=== PATIENT | male | born 1965 | race Caucasian/White ===

== ENCOUNTER 2019-11-29 08:08 | Emergency (ER) | payer MEDICAID ==
[~2019-11-29] VITALS: Ht 152.4 cm; Wt 63.5 kg
[2019-11-29 08:08] VITALS: BP 119/93
--- NOTE | 2019-11-29 08:09 | NUR ---
BIBA TAKEN TO BED 11
--- NOTE | 2019-11-29 08:15 | NUR ---
54 Y/O MALE BIBA A/O x3 C/O ABD PAIN THAT FEELS LIKE BURNING WITH PAIN 03/21. PT STATES HE HAS HAD THIS PAIN FOR 3 YEARS AND DEALS WITH IT DAILY AND NOTHING CHANGED IN HIS ROUTINE. PT STATES HE ALSO FELL THIS MORNING AND DENIES LOC/HITTING HEAD/N/V. PT STATES HIS HEAD/RIGHT ELBOW/LEFT SHOULDER ACHES. DENIES DIARRHEA; SKIN IS PINK/WARM/DRY; HR EVEN AND REGULAR; PT DENIES ANY FEVER, CP, SOB, OR COUGH AT THIS TIME;VSS; PATIENT POSITIONED FOR COMFORT; HOB ELEVATED; BEDRAILS UP X2; BED DOWN AND WHEELS LOCKED. MEDICAL HX: PT DENIES NKA
--- NOTE | 2019-11-29 08:17 | NUR ---
AT BEDSIDE EXAMINING PT
--- NOTE | 2019-11-29 08:34 | NUR ---
AT BEDSIDE RE-EVALUATING PT
--- NOTE | 2019-11-29 08:46 | NUR ---
X-RAY AT BEDSIDE
[2019-11-29] MEDS ORDERED: NACL 0.9% 500 ML IV ONE (08:50)
[2019-11-29] MEDS ORDERED: KETOROLAC 30 MG/ML VIAL IVP ONE (08:50)
--- NOTE | 2019-11-29 09:00 | NUR ---
EMT AT BEDSIDE FOR EKG
--- NOTE | 2019-11-29 09:15 | NUR ---
LAB AT BEDSIDE
[2019-11-29 09:17] LABS: BASOPHILS % (AUTO) 0.3 % (0.0-2.0); EOSINOPHILS % (AUTO) 0.8 % (0.0-4.0); HEMATOCRIT 44.6 % (36-52); HEMOGLOBIN 15.2 g/dL (12.0-18.0); LYMPHOCYTES % (AUTO) 16.1 % (20.5-51.1); MEAN CORPUSCULAR HEMOGLOBIN 30 pg (27-31); MEAN CORPUSCULAR HGB CONC 34 g/dL (33-37); MEAN CORPUSCULAR VOLUME 87.5 fL (80-94); MONOCYTES # (AUTO) 0.3 K/uL (0.8-1.0); MONOCYTES % (AUTO) 4.9 % (1.7-9.3); NEUTROPHILS # (AUTO) 4.7 K/uL (1.8-7.7); NEUTROPHILS % (AUTO) 77.9 % (42.2-75.2); PLATELET COUNT (AUTO) 251 K/uL (140-450); RED CELL DISTRIBUTION WIDTH 13.1 % (11.6-13.7); WHITE BLOOD COUNT (AUTO) 6.1 K/uL (4.8-10.8)
--- NOTE | 2019-11-29 09:23 | NUR ---
PT AWARE OF NEED TO PROVIDE URINE SAMPLE. STATES "I CAN'T PEE RIGHT NOW". PT REFUSED STRAIGHT CATH. IVF INFUSING AT THIS TIME. PT STATES HE WILL TRY TO PROVIDE URINE AT A LATER TIME VIA URINAL.
[2019-11-29 09:33] LABS: ALBUMIN 3.9 g/dL (3.4-5.0); ANION GAP 14.7 (8-16); ASPARTATE AMINOTRANSFERASE 23 U/L (15-37); CARBON DIOXIDE 25.9 mmol/L (21-32); CHLORIDE 103 mmol/L (98-107); CREATININE 0.9 mg/dL (0.6-1.3); GFR ARICAN-AMERICAN 112 mL/min (>90); GLUCOSE 100 mg/dL (74-106); POTASSIUM 3.6 mmol/L (3.5-5.1); SODIUM SERUM 140 mmol/L (136-145); TOTAL BILIRUBIN 0.6 mg/dL (0.0-1.0); UREA NITROGEN, BLOOD 9 mg/dL (7-18)
--- NOTE | 2019-11-29 09:33 | NUR ---
PT RESTING IN BED IN POSITION OF COMFORT. 2 SIDERAILS UP, BED LOW AND WHEELS LOCKED. VSS. WILL CONTINUE TO MONITOR.
[2019-11-29 09:38] LABS: SALICYLATE < 2.8 mg/dL (2.8-20.0)
--- NOTE | 2019-11-29 09:55 | NUR ---
URINE COLLECTED FROM PT AND INFORMED LAB
[2019-11-29 10:39] LABS: ACETAMINOPHEN < 0.5 ug/ml (10-30)
--- NOTE | 2019-11-29 10:58 | NUR ---
PT ASLEEP IN BED IN POSITION OF COMFORT, 2 SIDERAILS UP, BED LOW AND LOCKED. VSS. WILL CONTINUE TO MONITOR.
[2019-11-29 11:03] LABS: BARBITURATE, URINE NEG. ng/ml (NEG <=200); BENZODIAZEPINE, URINE NEG. ng/mL (NEG <=200); CANNABINOID, URINE POS. ng/mL (NEG <=50); COCAINE, URINE NEG. ng/mL (NEG <=300); OPIATE, URINE NEG. ng/mL (NEG <=2000); PHENCYCLIDINE SCREEN,URINE NEG. ng/mL (NEG <=25)
--- NOTE | 2019-11-29 11:10 | NUR ---
AT BEDSIDE UPDATING PT
[2019-11-29 11:17] VITALS: BP 116/77
--- NOTE | 2019-11-29 11:17 | NUR ---
Patient discharged with v/s stable. Written and verbal after care instructions given and explained. Patient alert, oriented and verbalized understanding of instructions. Ambulatory with steady gait. All questions addressed prior to discharge. ID band removed. Patient advised to follow up with PMD. Rx of TRAMADOL HYDROCHLORIDE given. Patient educated on indication of medication including possible reaction and side effects. Opportunity to ask questions provided and answered.
== END 2019-11-29 11:17 | disposition home or self-care (01) ==
LOC: MED 08:08
DX: R55 Syncope and collapse (principal); R07.9 Chest pain, unspecified; R10.9 Unspecified abdominal pain
CPT/HCPCS: 36415; 71045; 73030; 80053; 80305; 84484; 85025; 93005; 96361; 96374; 99285; G0480; G0482; J1885; J7030; Q0092